=== PATIENT | male | born 1935 | race Caucasian/White ===

== ENCOUNTER 2016-11-05 19:01 | Emergency (ER) ==
[2016-11-05 19:07] VITALS: BP 148/81; TEMP 99.6; BMI 24.4
[2016-11-05] MEDS ORDERED: TORADOL IM STA (20:01)
--- NOTE | 2016-11-05 20:03 | ED.PDOC ---
General ED Provider: Dr. PROSPER SANTIAGO Chief Complaint: Hip Pain/Injury Stated Complaint: Left hip pain, hurt to walk and sit, no injury or falls. Time Seen by Physician: 20:01 Mode of Arrival: Walk-In Information Source: Patient Primary Care Provider: [facility] Nursing and Triage Documentation Reviewed and Agree: Yes Musculoskeletal Complaint Exam - Hip/Pelvis Complaint/Exam Location of Pain: Reports: Left Mechanism of Injury: Reports: No known trauma Symptoms Are: Still present Initial Severity: Mild Current Severity: Mild Location: Reports: Discrete Character: Reports: Aching, Throbbing Aggravating: Reports: Movement Alleviating: Reports: None Associated Signs and Symptoms: Denies: Swelling, Redness, Bruising, Fever, Weakness, Dizziness, Syncope, Abdominal pain, Knee pain Related History: Reports: Similar episode Able to Bear Weight: Yes Related Surgical History: Reports: None Pelvis Palpation: Stable Tenderness: Present: Greater Trochanter Differential Diagnoses: Arthritis, Sprain, Tenosynovitis Review of Systems - Review Of Systems Constitutional: Reports: No symptoms Eyes: Reports: No symptoms Ears, Nose, Mouth, Throat: Reports: No symptoms Respiratory: Reports: No symptoms Cardiac: Reports: No symptoms GI: Reports: No symptoms : Reports: No symptoms Musculoskeletal: Reports: Joint pain Skin: Reports: No symptoms Neurological: Reports: No symptoms Endocrine: Reports: No symptoms Hematologic/Lymphatic: Reports: No symptoms All Other Systems: Reviewed and Negative Past Medical History - Past Medical History Previously Healthy: Yes Endocrine: Reports: None Cardiovascular: 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, NM, Hypertension Respiratory: Reports: None Hematological: Reports: None Gastrointestinal: Reports: None Genitourinary: Reports: None Neuro/Psych: Reports: None Musculoskeletal: Reports: None Cancer: Reports: None - Surgical History General Surgical History: Reports: CABG, Hernia Repair - Family History Family History: Reports: Unknown - Social History Smoking Status: Never smoker Hx Substance Use: No Alcohol Screening: None - Immunizations Tetanus Shot up to Date: Yes Physical Exam - Physical Exam Appearance: Well-appearing, No pain distress, Well-nourished Eyes: ZACHARY, EOMI, Conjunctiva clear ENT: Ears normal, Nose normal, Oropharynx normal Respiratory: Airway patent, Breath sounds clear, Breath sounds equal, Respirations nonlabored Cardiovascular: RRR, Pulses normal, No rub, No murmur GI/: Soft, Nontender, No masses, Bowel sounds normal, No Organomegaly Musculoskeletal: Normal strength, ROM intact, No edema, No calf tenderness Skin: Warm, Dry, Normal color Neurological: Sensation intact, Motor intact, Reflexes intact, Cranial nerves intact, Alert, Oriented Psychiatric: Affect appropriate, Mood appropriate Interpretation - Radiology Interpretation Radiology Results: Negative Exam Interpreted: CT Scan Critical Care Note - Critical Care Note Total Time (mins): 0 Course - Course Orders, Labs, Meds: Orders Category Date Time Status Ketorolac Tromethamine [Toradol] MEDS 11/05/16 20:01 Discontinued 30 mg IM ONCE STA CT HIP LEFT WITHOUT CONTRAST Stat RADS 11/05/16 20:01 Completed Medications Discontinued Medications Generic Name Dose Route Start Last Admin Trade Name Freq PRN Reason Stop Dose Admin Ketorolac Tromethamine 30 mg 11/05/16 20:01 11/05/16 20:20 Toradol IM 11/05/16 20:02 30 mg ONCE STA Administration Vital Signs: Temp Pulse Resp BP Pulse Ox 11/05/16 19:01 99.6 F 88 18 148/81 H 96 Departure - Departure Time of Disposition: 20:39 Disposition: HOME SELF-CARE Discharge Problem: Hip pain Condition: Stable Pt referred to PMD for follow-up: Yes Additional Instructions: rest hot pack f/u witrh PMD Prescriptions: Hydrocodone/Acetaminophen [[place] 5-325 Tablet] 1 tab PO TID PRN #12 tablet PRN Reason: PAIN Prednisone 10 mg PO BIDWM #14 tablet Allergies/Adverse Reactions: Allergies Penicillins Adverse Reaction (Verified 11/05/16 19:07) Home Medications: Ambulatory Orders Acebutolol HCl 200 mg PO BID 11/13/14 Aspirin [Aspirin EC] 325 mg PO DAILYWM 11/13/14 Omeprazole [Prilosec] 20 mg PO QDAC 11/13/14 Ascorbate Calcium [Vitamin C] 500 mg PO DAILY 11/07/15 Hydrocodone Bit/Acetaminophen [[place] 5-325] 1 tab PO BID PRN 11/07/15 Levothyroxine Sodium [Synthroid] 50 mcg PO QDAC 11/07/15 Lisinopril/Hydrochlorothiazide [Zestoretic 20-12.5 mg Tablet] 1 mg PO DAILY Vitamin E 400 unit PO DAILY 11/07/15 Hydrocodone/Acetaminophen [[place] 5-325 Tablet] 1 tab PO TID PRN #12 tablet 11/05 Prednisone 10 mg PO BIDWM #14 tablet 11/05/16 Disposition Discussed With: Patient, Family
--- NOTE | 2016-11-05 20:36 | CT ---
Exam: CT of the left hip without contrast History: Left hip pain Technique: [address] of the left hip with multiplanar reformations FINDINGS: No fracture of the femoral hip is seen. Left acetabulum is intact. Minor osteoarthritic change manifest by marginal osteophytosis and subchondral cystic change of the acetabulum. Visuali zed portions of the left bertha pelvis are intact. There is edema of the subcutaneous fat over the gr eater trochanter region possible intermuscular fat plane edema as well. No mass or fluid collection is seen. No obvious joint effusion by CT. Impression: 1. No acute bony or articular abnormalities of the left hip. 2. Mild osteoarthritic change 3. Subcutaneous and deep fat plane edematous change. Correlate for trauma. No hematoma is seen.
== END 2016-11-05 20:52 | disposition home or self-care (01) ==
LOC: ED 19:01
DX: M25.552 Pain in left hip (principal); Z79.899 Other long term (current) drug therapy
CPT/HCPCS: 96372; 99282

== ENCOUNTER 2017-01-10 15:00 | Outpatient (RCR) ==
--- NOTE | 2016-12-24 15:49 | RS.OPPTEV2 ---
Date of Note: 12/23/16 Visit #: 1 Date of Evaluation: 12/23/16 Payer Source: MEDICARE Treatment Diagnosis: Left hip pain, gait abnormality History of Condition/Mechanism of Injury:: Patient reports no injury to the left hip. States on 11/05/16 he was sitting at the counter at work, when he stood up and had severe pain in the left hip when he put his weight on the left LE. States he went to the ER and had a CT scan of the hip that showed inflammation and arthritis. Prior Level of Function.....Patient was independent with: ADL's, Self Care, Work /Vocation, Caregiving, Ambulation/Mobility, Community Integration/Access Functional Limitations: Self Care, ADL's, Standing, Squatting, Ambulation, Community Access/Integration Current Subjective/complaints:: Patient reports using a crutch in the right UE to take weight off the left LE with walking. States he received a steroid shot , which decreased the pain to the point that he can now put weight on the left LE, but he cannot walk without the crutch. States he was already using a cane in the left UE because of right knee pain. States left hip pain gets worse with walking. Reports tenderness at the hip. He is able to lay on the left hip. Denies tingling or numbness in the left LE. He has tried heat to the hip , but feels that it did not help. He has not tried ice. States he was given pain medication, but he does not take it very much unless the pain is really bad. Reports pain worse after working all day. Treatment Side (optional): Left Medical History Medical History: Hypertension, Arthritis Surgical History Comments:: CABG 2002, hernia repair 2002 Smoking Status: Unknown if ever smoked Diagnostic Testing/Imaging:: CT of left hip w/o contrast on 11/05/16: Impression: 1. no acute bony or articular abnormalities of the left hip. 2. Mild osteoarthritic change. 3. Subcutaneous and deep fat plane edematous change. Correlate for trauma. No hematoma is seen. Hx Home Medications: Gabapentin, Fairdealing Patient's Goals: His goal is to get relief of left hip pain. Pain Assessment - Pain Description Pain Location: left hip joint Pain Description: Sharp, Aching Current Pain Intensity: 4/10 Worst Pain Intensity: 10/10 Functional Outcome Measure LE Functional Scale: 17 (17/80=78.75% impairment) - G Codes & Severity Modifier G Codes & Modifier: Mobility current CL. Mobility goal CJ Source of G Code score: LE functional scale Gait - Gait Pattern Gait Comments: Patient ambulates with a straight cane in the left hand and a crutch on the right side. He demonstrates decreased stance on the left LE. Also demonstrates decreased left hip flexion and knee flexion during swing phase. - Left Hip ROM Comments: Left LE AROM is WFL's. Patient reports pain with hip adduction past midline. - Left Hip Strength Left Hip Flexion: 4+ Good + Left Hip Extension: 4+ Good + Left Hip Abduction: 4 Good Left Hip Adduction: 5 Normal Left Hip External Rotation: 4+ Good + Left Hip Internal Rotation: 4+ Good + Comments: Patient reports pain with resisted hip abduction. Palpation Comments:: Patient reports mild tenderness with palpation to the left greater trochanter. Sensation - Sensation Comments: Reports sensation impaired from circulation problems. Reports sensation to light touch and deep pressure intact. Additional Comments: Additional Comments: Right SLR to 45-50 degrees, left SLR to 35 degrees. - Treatment Modality: Ultrasound Parameters/Method Applied: 1.5 w/cm2 continuous X 8 mins over the left greater trochanter. Patient Position: Right Sidelying Interventions - Exercise/Activities/Manual Therapy Exercises/Activities: Patient instructed in right sidelying, left ITB stretch. Manual Therapy: NA - Charges Total Direct Minutes: 50 mins Total Treatment Time: 50 mins Procedures billed for this date of service:: Giles Martinez, Assessment Assessment: Patient presents to therapy with a diagnosis of left hip Greater trochanteric bursitis. He reports left hip pain and difficulty walking. He is currently ambulating with a cane and a crutch to decrease weight on the left LE. He reports pain with prolonged standing and walking. He demonstrates symtpoms consistent with left hip bursitis and will benefit from modalities and stretching exercises to decrease his symptoms. Patient Education: Education of diagnosis, Body/Joint mechanics, Home Exercise Program, Education of Plan of Care Rehab Potential: Good Short Term Goals Goal #1: Left hip pain decreased to 2/10. Goal to be met by: 01/07/17 Goal #2: Pt independent and compliant in HEP. Goal to be met by: 01/07/17 Goal #3: Pt able to walk short distances with minimal left hip pain. Goal to be met by: 01/07/17 Gas Station Cashier Goals Goal #1: Pt to amb. community distances without left hip pain. Goal to be met by: 01/28/17 Goal #2: Score on LE functional scale improved to <39% impairment. Goal to be met by: 01/28/17 Goal #3: Pt able to perform all ADL's without left hip pain. Goal to be met by: 01/28/17 Plan - Treatment to be Provided Procedures: Therapeutic Exercises, Therapeutic Activity, Patient Education Modalities: Electrical Stimulation, Ultrasound/Phonophoresis, Cryotherapy, Hot Packs - Treatment Plan Frequency: 3 X week Duration: 4 weeks ORDER # VISITS AND/OR THROUGH DATE: 01/28/17 - Treatment Code (1) Hip pain Code(s): M25.559 - PAIN IN UNSPECIFIED HIP Qualifiers: Laterality: left Qualified Code(s): M25.552 - Pain in left hip (2) Gait abnormality Code(s): R26.9 - UNSPECIFIED ABNORMALITIES OF GAIT AND MOBILITY Comments: R26.9 (3) Greater trochanteric bursitis of left hip Code(s): M70.62 - TROCHANTERIC BURSITIS, LEFT HIP Comments: M70.62
--- NOTE | 2016-12-25 16:32 | RS.OPPTDN ---
Subjective Date of Note: 12/25/16 Visit #: 2 Date of Evaluation: 12/23/16 Payer Source: MEDICARE Treatment Diagnosis: Left hip pain, gait abnormality Current Subjective/complaints:: Patient says he can't tell if his pain is better or not. Reports no problems from HEP. Indicates pain at the L greater trochanter. Pain Assessment - Pain Description Pain Location: left hip joint Pain Description: Sharp, Aching Current Pain Intensity: Did not rate - Treatment Modality: Ultrasound Parameters/Method Applied: continuous @ 1.5 w/cm2 3.3 mHz x 12 mins to the L greater trochanter Patient Position: Right Sidelying - Heat/Cryotherapy Treatment: Cryotherapy (over the L hip in sidelying x 15 mins after therex) Interventions - Exercise/Activities/Manual Therapy Exercises/Activities: Patient began receiving passive HS, heel cord, and ITB stretching x 4. Also, trunk rotation to the R. Began pillow squeezes 2x10. Total minutes of Exercise: 13 Manual Therapy: NA - Charges Total Direct Minutes: 25 Total Treatment Time: 40 Procedures billed for this date of service:: cp, u/s, ex Assessment: Patient admitted relief of hip pain upon ambulating out of the department. He should benefit from further modalities and therex to relieve his pain along with encouragement to use ice and stretch at home as instructed. Patient Education: Education of diagnosis, Body/Joint mechanics, Home Exercise Program, Home Safety, Activity Modification, Education of Plan of Care Patient demonstrates compliance with HEP?: Yes Short Term Goals Goal #1: Left hip pain decreased to 2/10. Goal to be met by: 01/07/17 Goal #2: Pt independent and compliant in HEP. Goal to be met by: 01/07/17 Goal #3: Pt able to walk short distances with minimal left hip pain. Goal to be met by: 01/07/17 Skilled Nursing Goals Goal #1: Pt to amb. community distances without left hip pain. Goal to be met by: 01/28/17 Goal #2: Score on LE functional scale improved to <39% impairment. Goal to be met by: 01/28/17 Goal #3: Pt able to perform all ADL's without left hip pain. Goal to be met by: 01/28/17 Plan PLAN OF CARE EXPIRES ON:: 01/28/17 ORDER # VISITS AND/OR THROUGH DATE: 01/28/17 PLAN: Continue Plan of Care
--- NOTE | 2016-12-27 16:15 | RS.OPPTDN ---
Subjective Date of Note: 12/27/16 Visit #: 3 Date of Evaluation: 12/23/16 Payer Source: MEDICARE Treatment Diagnosis: Left hip pain, gait abnormality Current Subjective/complaints:: Patient reports relief when at rest,but the pain depends upon how long he is on his feet.He reports moderate L hip pain today. Pain Assessment - Pain Description Pain Location: left hip joint Pain Description: Sharp, Aching Current Pain Intensity: 4/10 Other Comments regarding Pain:: Tender to palpate the L trochanter. - Treatment Modality: Ultrasound Parameters/Method Applied: 10 mins. @ 1.5 w/cm2,continuous mode to L trochanter. Patient Position: Right Sidelying - Heat/Cryotherapy Treatment: Cryotherapy (10 mins. after exercise and US) Interventions - Exercise/Activities/Manual Therapy Exercises/Activities: 20 mins. IT band stretches L hip abductor stretches in supine and R side-lying.Isometric hip abduction and contract -relax method to stretch. Total minutes of Exercise: 20 Manual Therapy: NA Total minutes of Manual Therapy: 0 HOME EXERCISE PROGRAM: R sidelying IT band stretch. - Charges Total Direct Minutes: 30 Total Treatment Time: 40 Procedures billed for this date of service:: US,ex,cp Assessment: Patient reports relief after treatment,but does report the pain returns upon standing today,but less intense.He has moderate hamstring tightness bilaterally.He is tender to palpate the L trochanter with moderate pressure and also has slight elevation of pain with hip flexion @ 90 degrees. Patient Education: Body/Joint mechanics, Home Exercise Program, Education of Plan of Care Patient demonstrates compliance with HEP?: Yes Short Term Goals Goal #1: Left hip pain decreased to 2/10. Goal to be met by: 01/07/17 Goal #2: Pt independent and compliant in HEP. Goal to be met by: 01/07/17 Progress towards Goal:: Progressing Goal #3: Pt able to walk short distances with minimal left hip pain. Goal to be met by: 01/07/17 Driller Machine Goals Goal #1: Pt to amb. community distances without left hip pain. Goal to be met by: 01/28/17 Goal #2: Score on LE functional scale improved to <39% impairment. Goal to be met by: 01/28/17 Goal #3: Pt able to perform all ADL's without left hip pain. Goal to be met by: 01/28/17 Plan PLAN OF CARE EXPIRES ON:: 01/28/17 ORDER # VISITS AND/OR THROUGH DATE: 01/28/17 PLAN: Continue Plan of Care
--- NOTE | 2016-12-31 16:00 | RS.OPPTDN ---
Subjective Date of Note: 12/31/16 Visit #: 4 Date of Evaluation: 12/23/16 Payer Source: MEDICARE Treatment Diagnosis: Left hip pain, gait abnormality Current Subjective/complaints:: Patient reports the L hip feels slightlly better today. Pain Assessment - Pain Description Pain Location: left hip joint Pain Description: Sharp, Aching Current Pain Intensity: not rated - Treatment Modality: Ultrasound Parameters/Method Applied: 10 mins. continuous mode to L trochanter @1.5 w/cm2. Patient Position: Right Sidelying - Heat/Cryotherapy Treatment: Cryotherapy (15 mins after exercises and US) Interventions - Exercise/Activities/Manual Therapy Exercises/Activities: 20 mins. IT band stretches , L hip abductor stretches in supine and R side-lying.SKTC and 90/90 hamstring stretches. Total minutes of Exercise: 20 Manual Therapy: NA Total minutes of Manual Therapy: 0 HOME EXERCISE PROGRAM: R sidelying IT band stretch.SKTC,90 /90 hams. stretches, piriformis stretches. - Charges Total Direct Minutes: 30 Total Treatment Time: 45 Procedures billed for this date of service:: ex,US,cp Assessment: Patient reports less intense pain today with initiating standing , able to walk short distances with less pain also.He has greater tightness in te R LE ,as compared to the L,but continues to respond well to stretching. Patient Education: Education of diagnosis, Body/Joint mechanics, Home Exercise Program, Home Safety, Activity Modification, Education of Plan of Care Patient demonstrates compliance with HEP?: Yes Short Term Goals Goal #1: Left hip pain decreased to 2/10. Goal to be met by: 01/07/17 Progress towards Goal:: Progressing Goal #2: Pt independent and compliant in HEP. Goal to be met by: 01/07/17 Progress towards Goal:: Progressing Goal #3: Pt able to walk short distances with minimal left hip pain. Goal to be met by: 01/07/17 Progress towards Goal:: Progressing Retirement Goals Goal #1: Pt to amb. community distances without left hip pain. Goal to be met by: 01/28/17 Goal #2: Score on LE functional scale improved to <39% impairment. Goal to be met by: 01/28/17 Goal #3: Pt able to perform all ADL's without left hip pain. Goal to be met by: 10/17/17 Plan PLAN OF CARE EXPIRES ON:: 01/28/17 ORDER # VISITS AND/OR THROUGH DATE: 01/28/17 PLAN: Continue Plan of Care
--- NOTE | 2017-01-01 16:06 | RS.OPPTDN ---
Subjective Date of Note: 01/01/17 Visit #: 5 Date of Evaluation: 12/23/16 Payer Source: MEDICARE Treatment Diagnosis: Left hip pain, gait abnormality Current Subjective/complaints:: Patient says his hip is feeling better. Reports he is trying to work on stretches at home. Pain Assessment - Pain Description Pain Location: left hip joint Pain Description: Sharp, Aching Current Pain Intensity: not rated ("better") - Treatment Modality: Ultrasound Parameters/Method Applied: Continuous @ 3.3 mHz and 1.5 w/cm2 x 12 mins to the L greater trochanter Patient Position: Right Sidelying - Heat/Cryotherapy Treatment: Cryotherapy (x 15 mins to the L hip in sidelying after therex) Interventions - Exercise/Activities/Manual Therapy Exercises/Activities: 20 mins. IT band stretches , L hip abductor stretches in supine and R side-lying.SKTC and 90/90 hamstring stretches. R lower trunk rotation. Patient began pillow squeezes and isometric hip abd x 10. Manual Therapy: NA HOME EXERCISE PROGRAM: R sidelying IT band stretch.SKTC,90 /90 hams. stretches, piriformis stretches. - Charges Total Direct Minutes: 32 Total Treatment Time: 47 Procedures billed for this date of service:: u/s, cp, ex Assessment: Patient has been experiencing less L hip pain, but does remain tight with hip abd and hamstrings. Patient is participating in home stretching as he is able . Patient Education: Education of diagnosis, Body/Joint mechanics, Home Exercise Program, Home Safety, Activity Modification, Education of Plan of Care Patient demonstrates compliance with HEP?: Yes Short Term Goals Goal #1: Left hip pain decreased to 2/10. Goal to be met by: 01/07/17 Progress towards Goal:: Progressing Goal #2: Pt independent and compliant in HEP. Goal to be met by: 01/07/17 Progress towards Goal:: Progressing Goal #3: Pt able to walk short distances with minimal left hip pain. Goal to be met by: 01/07/17 Progress towards Goal:: Progressing Continuous Crusher Operator Goals Goal #1: Pt to amb. community distances without left hip pain. Goal to be met by: 01/28/17 Goal #2: Score on LE functional scale improved to <39% impairment. Goal to be met by: 01/28/17 Goal #3: Pt able to perform all ADL's without left hip pain. Goal to be met by: 01/28/17 Plan PLAN OF CARE EXPIRES ON:: 01/28/17 ORDER # VISITS AND/OR THROUGH DATE: 01/28/17 PLAN: Continue Plan of Care
--- NOTE | 2017-01-03 16:26 | RS.OPPTDN ---
Subjective Date of Note: 01/03/17 Visit #: 6 Date of Evaluation: 12/23/16 Payer Source: MEDICARE Treatment Diagnosis: Left hip pain, gait abnormality Current Subjective/complaints:: Patient reports the tenderness and soreness in the L hip area is lessening.He also reports he feels he would lose his balnce to the L if not using an assistive device.He uses crutch on R and cane in L hand. Pain Assessment - Pain Description Pain Location: left hip joint Pain Description: Aching Current Pain Intensity: not rated ("better") Interventions - Exercise/Activities/Manual Therapy Exercises/Activities: 50 mins. total ,including patient education for safety.Leg press for both LE's @45 # ,then L LE only @ 30 # ,3/10 reps each.Red theraband for hip abd/adduction.Single leg stance on L and R briefly with mod. assist required. Total minutes of Exercise: 50 Manual Therapy: NA Total minutes of Manual Therapy: 0 HOME EXERCISE PROGRAM: R sidelying IT band stretch.SKTC,90 /90 hams. stretches, piriformis stretches.Red theraband exercises for hip abd/adduction. - Charges Total Direct Minutes: 50 Total Treatment Time: 50 Procedures billed for this date of service:: ex 3 Assessment: Patient has significant weakness in the L hip abductors ,with + Trendelenberg present with single leg stance.He does report less tenderness in the L trochanteric region today.In static stance ,he has trunk shift to the R , and pelvic translation to the L.He is moderate risk for falls without assistive devices.He reports using assistive devices while in his home for safety. Patient Education: Education of diagnosis, Body/Joint mechanics, Home Exercise Program, Home Safety, Activity Modification, Education of Plan of Care Patient demonstrates compliance with HEP?: Yes Short Term Goals Goal #1: Left hip pain decreased to 2/10. Goal to be met by: 01/07/17 Progress towards Goal:: Progressing Goal #2: Pt independent and compliant in HEP. Goal to be met by: 01/07/17 Progress towards Goal:: Progressing Goal #3: Pt able to walk short distances with minimal left hip pain. Goal to be met by: 01/07/17 Progress towards Goal:: Progressing Studio Set Up Worker Goals Goal #1: Pt to amb. community distances without left hip pain. Goal to be met by: 01/28/17 Progress towards goal: Progressing Goal #2: Score on LE functional scale improved to <39% impairment. Goal to be met by: 01/28/17 Goal #3: Pt able to perform all ADL's without left hip pain. Goal to be met by: 01/28/17 Plan PLAN OF CARE EXPIRES ON:: 01/28/17 ORDER # VISITS AND/OR THROUGH DATE: 01/28/17 PLAN: Progress Exercises
--- NOTE | 2017-01-07 16:26 | RS.OPPTDN ---
Subjective Date of Note: 01/07/17 Visit #: 7 Date of Evaluation: 12/23/16 Payer Source: MEDICARE Treatment Diagnosis: Left hip pain, gait abnormality Current Subjective/complaints:: Patient reports no soreness after past session of resistive exercises.He does have intermittent R knee pain due to arthritis. Pain Assessment - Pain Description Pain Location: left hip joint Pain Description: Aching Current Pain Intensity: not rated ("better") Interventions - Exercise/Activities/Manual Therapy Exercises/Activities: 50 mins. total ,including patient education for safety.Leg press for both LE's @45 # ,3/15 reps.Side steps on /off 4 " step, widened MIRZA for weight shift top L and R.Supine stretches to hamstrings and lumbar,ended session with R sidelying position doing L HIP abduction (clam shell .) Total minutes of Exercise: 50 Manual Therapy: NA Total minutes of Manual Therapy: 0 HOME EXERCISE PROGRAM: R sidelying IT band stretch.SKTC,90 /90 hams. stretches, piriformis stretches.Red theraband exercises for hip abd/adduction. - Charges Total Direct Minutes: 50 Total Treatment Time: 50 Procedures billed for this date of service:: ex 3 Assessment: Patient reports less tenderness at the L trochanter today,less pain with weight bearing activities.He has better awareness of body mechanics and positioning ,including while at rest.He can benefit from continued exercises as he is very weak in the L hip abductors,fatigues within 3 to 5 reps. of sidelying exercises. Patient Education: Education of diagnosis, Body/Joint mechanics, Home Exercise Program, Home Safety, Activity Modification, Education of Plan of Care Patient demonstrates compliance with HEP?: Yes Short Term Goals Goal #1: Left hip pain decreased to 2/10. Goal to be met by: 01/07/17 Progress towards Goal:: Progressing Goal #2: Pt independent and compliant in HEP. Goal to be met by: 01/07/17 Progress towards Goal:: Progressing Goal #3: Pt able to walk short distances with minimal left hip pain. Goal to be met by: 01/07/17 Progress towards Goal:: Progressing Production Statistical Clerk Goals Goal #1: Pt to amb. community distances without left hip pain. Goal to be met by: 01/28/17 Progress towards goal: Progressing Goal #2: Score on LE functional scale improved to <39% impairment. Goal to be met by: 01/28/17 Goal #3: Pt able to perform all ADL's without left hip pain. Goal to be met by: 01/28/17 Progress towards goal: Progressing Plan PLAN OF CARE EXPIRES ON:: 01/28/17 ORDER # VISITS AND/OR THROUGH DATE: 01/28/17 PLAN: Continue Plan of Care
--- NOTE | 2017-01-08 16:21 | RS.OPPTDN ---
Subjective Date of Note: 01/08/17 Visit #: 8 Date of Evaluation: 12/23/16 Payer Source: MEDICARE Treatment Diagnosis: Left hip pain, gait abnormality Current Subjective/complaints:: Patient says he feels like the L hip will "go out" at times. States that his R knee and L hip were achey after his last session. States he relies mostly on his crutch in the R UE and only uses both it and the cane when he is in the parking lot or stores. Says he would like to get completely away from AD. Pain Assessment - Pain Description Pain Location: left hip joint Pain Description: Aching Current Pain Intensity: more achey today and sore at the R knee - Treatment Modality: Ultrasound Parameters/Method Applied: continuous @ 1.5 w/cm2 x 8 mins 3.3 mHz to the L greater trochanter Patient Position: Right Sidelying - Heat/Cryotherapy Treatment: Hot Pack (over the L hip in sidelying x 15 mins) Interventions - Exercise/Activities/Manual Therapy Exercises/Activities: 22mins. Passive HS, piriformis, fig 4, and trunk rotation to the R for L hip x 3 each. Patient performs ball squeezes for isometric hip add in hooklying, green tband for L hip abd in hooklying (gave for home), clams (3x5) all 2x10. Patient performs on Leg press for 15 and 30# using L LE only per request and determined due to c/o R knee pain. Manual Therapy: NA HOME EXERCISE PROGRAM: R sidelying IT band stretch.SKTC,90 /90 hams. stretches, piriformis stretches.Red theraband exercises for hip abd/adduction. - Charges Total Direct Minutes: 30 Total Treatment Time: 45 Procedures billed for this date of service:: hp, u/s, ex Assessment: Returned to u/s today with ex related to patient's c/o's. Mr. Mcallister is progressing with improved leti to mod palpation and use of sound head during modality. He was able to leti stretches better today and with only performing Leg presses using the LLE only avoiding aggravation to the R LE. Patient admits to feeling significantly better upon leaving and experiencing more flexibility with amb. Patient Education: Body/Joint mechanics, Home Exercise Program, Home Safety Patient demonstrates compliance with HEP?: Yes Short Term Goals Goal #1: Left hip pain decreased to 2/10. Goal to be met by: 01/07/17 Progress towards Goal:: Progressing Goal #2: Pt independent and compliant in HEP. Goal to be met by: 01/07/17 Progress towards Goal:: Progressing Goal #3: Pt able to walk short distances with minimal left hip pain. Goal to be met by: 01/07/17 Progress towards Goal:: Progressing [facility] Goals Goal #1: Pt to amb. community distances without left hip pain. Goal to be met by: 01/28/17 Progress towards goal: Progressing Goal #2: Score on LE functional scale improved to <39% impairment. Goal to be met by: 01/28/17 Goal #3: Pt able to perform all ADL's without left hip pain. Goal to be met by: 01/28/17 Progress towards goal: Progressing Plan PLAN OF CARE EXPIRES ON:: 01/28/17 ORDER # VISITS AND/OR THROUGH DATE: 01/28/17 PLAN: Progress Exercises
--- NOTE | 2017-01-10 16:43 | RS.OPPTDN ---
Subjective Date of Note: 01/10/17 Visit #: 9 Date of Evaluation: 12/23/16 Payer Source: MEDICARE Treatment Diagnosis: Left hip pain, gait abnormality Current Subjective/complaints:: Patient says he only has hip pain now if he places FWB onto the L LE. Reports R knee pain is improving. States he is working around his shop and home using only his cane to the R side and not both AD. Pain Assessment - Pain Description Pain Location: left hip joint only with FWB Pain Description: Aching - Treatment Modality: Ultrasound Parameters/Method Applied: continuous @ 1.5 w/cm2 x 8 mins to the L greater trochanter Patient Position: Right Sidelying Interventions - Exercise/Activities/Manual Therapy Exercises/Activities: 25mins. Passive HS, piriformis, fig 4, and trunk rotation to the R for L hip x 3 each. Patient performs ball squeezes for isometric hip add in hooklying, QS, green tband for L hip abd in hooklying, bilateral SAQ with ball between lower legs, clams (3x5) all 2x10. Patient performs on Leg press for 15 and 30# using L LE only per continued request and determined due to decreasing R knee pain. Manual Therapy: NA HOME EXERCISE PROGRAM: R sidelying IT band stretch.SKTC,90 /90 hams. stretches, piriformis stretches.Red theraband exercises for hip abd/adduction. - Charges Total Direct Minutes: 34 Total Treatment Time: 34 Procedures billed for this date of service:: u/s, ex2 Assessment: Patient able to partial WB onto the L LE without pain, but once he applies full weight, pain becomes present. Although that pain is more mild than previously. Patient has been compliant with HEP and working at his job and outside in his yard. Patient Education: Education of diagnosis, Body/Joint mechanics, Home Exercise Program, Home Safety, Activity Modification, Education of Plan of Care Patient demonstrates compliance with HEP?: Yes Short Term Goals Goal #1: Left hip pain decreased to 2/10. Goal to be met by: 01/07/17 Progress towards Goal:: Progressing Goal #2: Pt independent and compliant in HEP. Goal to be met by: 01/07/17 Progress towards Goal:: Progressing Goal #3: Pt able to walk short distances with minimal left hip pain. Goal to be met by: 01/07/17 Progress towards Goal:: Progressing Intermediate Goals Goal #1: Pt to amb. community distances without left hip pain. Goal to be met by: 01/28/17 Progress towards goal: Progressing Goal #2: Score on LE functional scale improved to <39% impairment. Goal to be met by: 01/28/17 Goal #3: Pt able to perform all ADL's without left hip pain. Goal to be met by: 01/28/17 Progress towards goal: Progressing Plan PLAN OF CARE EXPIRES ON:: 01/28/17 ORDER # VISITS AND/OR THROUGH DATE: 01/28/17 PLAN: Progress Exercises (Patient to attend one more session per order.)
== END 2017-01-11 ==
PROVIDERS: ATTEND Orthopaedic Surgery
DX: M70.62 Trochanteric bursitis, left hip (principal)

== ENCOUNTER 2017-04-23 16:20 | Outpatient (CLI) | END 2017-04-23 16:21 | disposition home or self-care (01) | LOC: LAB 16:20 | PROVIDERS: ATTEND General Practice | DX: L02.91 Cutaneous abscess, unspecified (principal) | CPT/HCPCS: 87070; 87186 ==

== ENCOUNTER 2017-11-03 13:03 | Outpatient (CLI) ==
[2017-05-02 14:59] VITALS: BMI 24.4
--- NOTE | 2017-11-03 16:09 | CT ---
EXAM: CT left hip without contrast HISTORY: Pain in bilateral hips COMPARISON: 11/05/2016 TECHNIQUE: CT left hip performed without intravenous contrast. Coronal and sagittal reformatted tamie ges obtained. FINDINGS: Mild fecal retention in the visualized colon. Colonic diverticulosis. Prostate moderatel y enlarged. Small fat-containing left inguinal hernia. Atherosclerosis. Left sacroiliac joint inta ct with mild bridging changes. Mild osteoarthritis left hip with joint space narrowing and osteophyt e formation. Degenerative change in the spine is only minimally visualized. IMPRESSION: 1. No fracture or dislocation. 2. Mild osteoarthritis left hip.
--- NOTE | 2017-11-03 16:12 | CT ---
EXAM: CT of the right hip without contrast TECHNIQUE: Helical axial CT of the right hip was performed without contrast with coronal and sagittal reconstructions and separate work station 3-D renderings. COMPARISON: CT of the left hip from same day HISTORY: Hip pain FINDINGS: There is no acute fracture or dislocation. Alignment is anatomic. There is no evidence f or femoral neck fracture or acetabular fracture. There is no impaction. The greater and lesser troc hanter are intact. The sacral ala is intact. There is no evidence for superior or inferior pubic ra mus fracture. Soft tissues are negative. There is some moderate degenerative change in the hip joint. IMPRESSION: 1. Moderate degenerative change of the right hip. 2. No acute osseous abnormality.
== END 2017-11-03 13:04 | disposition home or self-care (01) ==
LOC: RAD 13:03
PROVIDERS: ATTEND Internal Medicine
DX: M25.552 Pain in left hip (principal); M25.551 Pain in right hip

== ENCOUNTER 2020-08-08 19:46 | Inpatient (IN) ==
[2020-08-08] MEDS ORDERED: TYLENOL PO PRN (21:41)
[2020-08-08] MEDS ORDERED: LASIX IVP ONE (21:47)
[2020-08-08] MEDS ORDERED: NORCO 5-325 PO PRN (21:52)
[2020-08-08 22:00] LABS: BASOPHILS % (AUTO) 0.3 % (0.0-3.0); EOSINOPHILS # (AUTO) 0.2 K/ul (0.0-0.7); EOSINOPHILS % (AUTO) 2.4 % (0.0-7.0); HEMATOCRIT 32.6 % (42.0-52.0); HEMOGLOBIN 10.4 g/dl (14.0-18.0); IMMATURE GRANULOCYTE % (AUTO) 0.3 % (0.0-5.0); LYMPHOCYTES # (AUTO) 1.7 K/uL (0.60-3.4); LYMPHOCYTES % (AUTO) 24.9 (10.0-50.0); MEAN CORPUSCULAR HEMOGLOBIN 30.3 pg (27.0-31.0); MEAN CORPUSCULAR HGB CONC 31.9 (31.8-35.4); MONOCYTES # (AUTO) 0.6 K/uL (0.4-2.0); MONOCYTES % (AUTO) 9.5 (0-10); NEUTROPHILS # (AUTO) 4.2 K/ul (2.0-6.9); NEUTROPHILS % (AUTO) 62.6 % (42.2-75.2); PLATELET COUNT 181 10^3/uL (140-440); RDW COEFFICIENT OF VARIATION 13.3 % (11.6-14.8); RED BLOOD COUNT 3.43 10^6/ul (4.70-6.10); WHITE BLOOD COUNT 6.71 K/ul (4.2-10.2)
[2020-08-08 22:17] LABS: ALANINE AMINOTRANSFERASE 62.3 U/L (0-50); ALBUMIN 3.4 g/dL (3.5-5.0); ALKALINE PHOSPHATASE 121.5 U/L (56-119); ASPARTATE AMINO TRANSFERASE 53.2 U/L (17-59); BILIRUBIN,TOTAL 0.45 mg/dL (0.2-1.3); BLOOD UREA NITROGEN 30.8 mg/dL (9-20); CALCIUM 8.37 mg/dL (8.4-10.2); CARBON DIOXIDE 26.9 mmol/L (22-30.0); CHLORIDE 107.5 mmol/L (98-107); CREATININE 1.3 mg/dL (0.60-1.10); GLUCOSE 120.4 mg/dL (74-106); POTASSIUM 4.51 mmol/L (3.5-5.1); SODIUM 139.5 mmol/L (134.5-145); TOTAL PROTEIN 6.06 g/dL (6.3-8.2)
--- NOTE | 2020-08-08 22:32 | DI ---
Exam: Chest one-view History: Shortness of breath FINDINGS: Normal cardiomediastinal contours. Prominent pulmonary vasculature. Small pleural fluid bilaterally. The lungs are hyperexpanded. Prior mediastinotomy. No acute chest wall abnormality. Impression: Central vascular prominence and bilateral pleural fluid could represent congestive heart failure comp onent. Chronic obstructive pulmonary disease
[2020-08-08] MEDS: SECTRAL PO SCH (22:35)
[2020-08-08] MEDS: ELIQUIS PO SCH (22:36)
[2020-08-08 23:02] VITALS: BMI 25.2
[2020-08-09 01:24] LABS: BILIRUBIN,URINE Negative (NEGATIVE); CLARITY,URINE Clear (CLEAR); COLOR,URINE Yellow (YELLOW); GLUCOSE, URINE (UA) Negative (NEGATIVE); KETONES,URINE Negative (NEGATIVE); LEUKOCYTE ESTERASE ,URINE Negative (NEGATIVE); NITRITE,URINE Negative (NEGATIVE); PH,URINE 5.5 (5-9); PROTEIN,URINE 1+ (NEGATIVE); URINE, BLOOD Trace-intact (NEGATIVE); UROBILINOGEN,URINE 0.2 (0.2)
[2020-08-09 01:32] LABS: HYALINE CASTS, URINE 0-2 (NOT PRESENT); SQUAMOUS EPITHELIAL CELL,UR 0-2 (0-5)
[2020-08-09 04:56] LABS: BASOPHILS % (AUTO) 0.4 % (0.0-3.0); EOSINOPHILS # (AUTO) 0.2 K/ul (0.0-0.7); HEMATOCRIT 32.2 % (42.0-52.0); HEMOGLOBIN 10.2 g/dl (14.0-18.0); IMMATURE GRANULOCYTE % (AUTO) 0.3 % (0.0-5.0); LYMPHOCYTES # (AUTO) 1.9 K/uL (0.60-3.4); LYMPHOCYTES % (AUTO) 26.6 (10.0-50.0); MEAN CORPUSCULAR HEMOGLOBIN 30.3 pg (27.0-31.0); MEAN CORPUSCULAR HGB CONC 31.7 (31.8-35.4); MEAN CORPUSCULAR VOLUME 95.5 fl (80.0-94.0); MONOCYTES # (AUTO) 0.8 K/uL (0.4-2.0); MONOCYTES % (AUTO) 10.7 (0-10); NEUTROPHILS # (AUTO) 4.1 K/ul (2.0-6.9); PLATELET COUNT 179 10^3/uL (140-440); RDW COEFFICIENT OF VARIATION 13.3 % (11.6-14.8); RED BLOOD COUNT 3.37 10^6/ul (4.70-6.10); WHITE BLOOD COUNT 7.02 K/ul (4.2-10.2)
[2020-08-09 05:08] LABS: ALANINE AMINOTRANSFERASE 68.7 U/L (0-50); ALBUMIN 3.37 g/dL (3.5-5.0); ALKALINE PHOSPHATASE 129.9 U/L (56-119); ASPARTATE AMINO TRANSFERASE 56.8 U/L (17-59); BILIRUBIN,TOTAL 0.43 mg/dL (0.2-1.3); BLOOD UREA NITROGEN 34.7 mg/dL (9-20); CALCIUM 8.25 mg/dL (8.4-10.2); CARBON DIOXIDE 27.1 mmol/L (22-30.0); CHLORIDE 106.1 mmol/L (98-107); CREATININE 1.3 mg/dL (0.60-1.10); GLUCOSE 90.1 mg/dL (74-106); POTASSIUM 4.23 mmol/L (3.5-5.1); SODIUM 138.6 mmol/L (134.5-145); TOTAL PROTEIN 6.14 g/dL (6.3-8.2)
[2020-08-09] MEDS: SYNTHROID PO SCH (05:53)
[2020-08-09] MEDS: PROTONIX PO SCH (08:13)
[2020-08-09] MEDS: SECTRAL PO SCH ×2 (08:14→20:33)
[2020-08-09] MEDS: NEURONTIN PO SCH (08:14)
[2020-08-09] MEDS: ELIQUIS PO SCH ×2 (08:15→20:33)
[2020-08-09] MEDS ORDERED: ZESTORETIC 20-12.5 MG TAB PO SCH ×2 (09:00)
[2020-08-09] MEDS: LASIX IVP SCH (12:30)
[2020-08-10 05:15] LABS: BASOPHILS % (AUTO) 0.3 % (0.0-3.0); EOSINOPHILS # (AUTO) 0.2 K/ul (0.0-0.7); EOSINOPHILS % (AUTO) 2.4 % (0.0-7.0); HEMATOCRIT 32.4 % (42.0-52.0); HEMOGLOBIN 10.4 g/dl (14.0-18.0); IMMATURE GRANULOCYTE % (AUTO) 0.1 % (0.0-5.0); LYMPHOCYTES # (AUTO) 2.2 K/uL (0.60-3.4); LYMPHOCYTES % (AUTO) 31.8 (10.0-50.0); MEAN CORPUSCULAR HEMOGLOBIN 29.6 pg (27.0-31.0); MEAN CORPUSCULAR HGB CONC 32.1 (31.8-35.4); MEAN CORPUSCULAR VOLUME 92.3 fl (80.0-94.0); MONOCYTES # (AUTO) 0.7 K/uL (0.4-2.0); MONOCYTES % (AUTO) 10.5 (0-10); NEUTROPHILS # (AUTO) 3.8 K/ul (2.0-6.9); NEUTROPHILS % (AUTO) 54.9 % (42.2-75.2); PLATELET COUNT 192 10^3/uL (140-440); RDW COEFFICIENT OF VARIATION 13.2 % (11.6-14.8); RED BLOOD COUNT 3.51 10^6/ul (4.70-6.10); WHITE BLOOD COUNT 6.95 K/ul (4.2-10.2)
[2020-08-10 05:29] LABS: ALANINE AMINOTRANSFERASE 81.3 U/L (0-50); ALBUMIN 3.29 g/dL (3.5-5.0); ALKALINE PHOSPHATASE 138.9 U/L (56-119); ASPARTATE AMINO TRANSFERASE 69.5 U/L (17-59); BILIRUBIN,TOTAL 0.47 mg/dL (0.2-1.3); BLOOD UREA NITROGEN 37.1 mg/dL (9-20); CALCIUM 8.16 mg/dL (8.4-10.2); CARBON DIOXIDE 28.4 mmol/L (22-30.0); CHLORIDE 104.9 mmol/L (98-107); CREATININE 1.4 mg/dL (0.60-1.10); GLUCOSE 100.6 mg/dL (74-106); POTASSIUM 4.22 mmol/L (3.5-5.1); SODIUM 138.8 mmol/L (134.5-145); TOTAL PROTEIN 6.15 g/dL (6.3-8.2)
[2020-08-10] MEDS: LASIX IVP SCH (05:44)
[2020-08-10] MEDS: SYNTHROID PO SCH (05:44)
[2020-08-10] MEDS: PROTONIX PO SCH (05:44)
[2020-08-10 06:07] VITALS: BP 128/64; TEMP 98.1
--- NOTE | 2020-08-10 08:42 | HP ---
DATE OF SERVICE: 08/08/20 REASON FOR HOSPITALIZATION/HISTORY OF PRESENT ILLNESS: 85-year-old male with leg swelling below knee. Now right leg is swollen to the thigh, tender giraldo/calf. Denies any shortness of breath. No signs or symptoms of CHF/CAD/Covid. PAST MEDICAL HISTORY: Shortness of breath COPD CAD LV dysfunction Hypothyroidism Varicose veins Anemia B12 deficiency Diverticulosis PVCs PAST SURGICAL HISTORY: CABG 2003 Hernia repair REVIEW OF SYSTEMS: CONSTITUTIONAL: No fever, no fatigue. HEENT: No sinus drainage, no sore throat. RESPIRATORY: No cough, no congestion. CARDIOVASCULAR: No atypical chest pain for coronary artery disease. No angina, CHF symptoms, palpitations or shortness of breath. GASTROINTESTINAL: No melena or abdominal pain. No GERD. GENITOURINARY: No hematuria, no prostatism, no polyuria. MACHINERY DISMANTLER: No blackout, no dizziness, no headache, no double vision. MUSCULOSKELETAL: Osteoarthritis pain. ENDOCRINE: No weight loss, no weight gain. SKIN: Not dry, no rash. PSYCHIATRIC: Not anxious, no depression, no suicidal thoughts, no homicidal thoughts. SOCIAL HISTORY: Chews tobacco. Never smoker. . No alcohol use. FAMILY HISTORY: Father - prostate cancer (onset age 86); mother colorectal cancer (onset age 65), [place], DM. MEDICATIONS: Zestoretic 20-12.5 mg/0.5 tab p.o. daily Synthroid 75 mcg p.o. daily Protonix 40 mg daily Neurontin 300 mg daily Sectral 20 mg b.i.d. Martin 7.5/325 mg t.i.d. ASA 325 mg daily Vitamin E and C Fish Oil daily OTC Move Free one daily 02 at h.s. ALLERGIES: PCN, VYTORIN, LIPITOR, ZETIA PHYSICAL EXAMINATION: V/S: Pulse 77, BP 110/68, temperature 97.9, 02 sat 98%. Height 5'8", weight 158.0, BMI 24.0. GENERAL APPEARANCE: Oriented times three. HEENT: Normal. NECK: No JVP, no bruits. RESPIRATORY: Decreased breath sounds. Lungs are clear. CARDIOVASCULAR: S1, S2, no S3, no murmur. No cyanosis, clubbing. No ascites. GI/ABDOMEN: No tenderness. Bowel sounds are active. EXTREMITIES: +3 right lower extremity; trace left lower extremity edema. right lower extremity swelling to thigh. Pulses +1, equal. MACHINERY DISMANTLER: Deep tendon reflexes, sensory, motor and gait all normal. ASSESSMENT: 1. Left lower extremity DVT. 2. Leg edema, right greater than left. 3. Chronic kidney disease, Stage 3. 4. Shortness of breath. 5. COPD. 6. CAD. 7. CABG, 2002. 8. LV dysfunction. 9. Hypothyroidism. 10. Varicose veins. 11. Anemia. 12. PVCs. 13. History of B12 deficiency. 14. Diverticulosis. PLAN: 1. Admit - Acute. 2. Routine telemetry orders. No cardiac markers. 3. CBC, CMP now and daily. 4. Chest x-ray. 5. Start Eliquis 10 mg b.i.d. times 7 days p.o. 6. UA. 7. Lasix 40 mg times one dose. 8. Regular diet. 9. 2D echo. 10. Continue all home medications. 11. Elevate legs. 12. Daily weight. 13. Covid test by respiratory panel PCR. TIME SPENT: More than 70 minutes. MTDD
[2020-08-10] MEDS ORDERED: ZESTRIL PO SCH (09:00)
[2020-08-10] MEDS: NEURONTIN PO SCH (09:02)
[2020-08-10] MEDS: ELIQUIS PO SCH (09:02)
[2020-08-10] MEDS: SECTRAL PO SCH (09:02)
--- NOTE | 2020-08-10 09:15 | PCM.PROG ---
Attending Provider: ATTENDING PROVIDER: Dr. HUSSEIN LOOMIS This patient is seen with Arely Purcell, Nurse Practitioner. DATE OF SERVICE: 08/10/20 SUBJECTIVE: This 85 year old /WHITE M was hospitalized 08/08/20. The patient is resting comfortably. Leg edema has significantly improved. Hgb is stable. Tolerating Eliquis. REVIEW OF SYSTEMS: CONSTITUTIONAL: No night sweats. No fatigue, malaise, lethargy. No fever or chills. Weakness. HEENT: Eyes: No visual changes. No eye pain. No eye discharge. ENT: No runny nose. No epistaxis. No sinus pain. No odynophagia. No congestion. RESPIRATORY: No cough, no congestion. No hemoptysis. No shortness of breath. CARDIOVASCULAR: No angina symptoms. No CHF symptoms. No atypical chest pain for CAD. No palpitations. No orthopnea.. GASTROINTESTINAL: No abdominal pain. No nausea or vomiting. No diarrhea or constipation. No hematemesis. No hematochezia. GENITOURINARY: No urgency. No frequency. No dysuria. No hematuria. No obstruct sintia symptoms. No discharge. No pain. No significant abnormal bleeding. MUSCULOSKELETAL: No musculoskeletal pain; no joint swelling. Chronic pain. NEUROLOGICAL: Awake, alert, oriented to time, place and person. No headache. No neck pain. No syncope. No seizures. No dizziness. PSYCHIATRIC: Not anxious. No depression. No suicidal thoughts. No homicidal thoughts. SKIN: No rash. No lesions. No wounds. Right lower extremity edema. ENDOCRINE: No unexplained weight loss. No weight gain. HEMATOLOGIC/LYMPHATIC: No anemia. No purpura. No petechiae. No prolonged or excessive bleeding. No palpable lymph nodes. PHYSICAL EXAMINATION: GENERAL: The patient is awake, alert and oriented, lying in bed in no distress. VITAL SIGNS: Temperature 98.1 F, Pulse 71, Respiratory Rate 18, BP 128/64, Pulse Ox 95% HEENT: Head normocephalic, atraumatic. Eyes: Extraocular muscles are intact. Pupils are equal, round and reactive to light and accommodation. Ears: No lesions. Nose appeared normal. Throat: No exudate or erythema. NECK: Supple. No JVD, no carotid bruit. No lymphadenopathy or thyromegaly. LUNGS: Diminished breath sounds. Clear to auscultation. Percussion note normal. Chest symmetrical. HEART: S1, S2, no S3. No murmurs. No cyanosis or clubbing. No ascites. Pulses: Dorsalis pedis and posterior tibial pulses +1 to +2 both sides. ABDOMEN: Soft. Non-tender. Bowel sounds active. No CVA tenderness. No mass felt. EXTREMITIES: Trace lower extremity edema. Full range of motion of all extremities, equal. NEUROLOGIC: No focal deficit. Cranial nerves II through XII are grossly intact. No headache. No double vision. SKIN: Not dry. Intact. Turgor-normal. LYMPHATIC: No palpable lymph nodes/no lymphedema. MUSCULOSKELETAL: Normal joints with no swelling. Muscle tone is normal. LAB REVIEW: 08/10/20 04:55 08/10/20 04:55 08/10/20 04:55: Sodium 138.8, Potassium 4.22, Chloride 104.9, Carbon Dioxide 28.4, Anion Gap 9.72, BUN 37.1 H, Creatinine 1.40 H, Estimated GFR (MDRD) 48.00, BUN/Creatinine Ratio 26.50, Glucose 100.6, Calcium 8.16 L, Total Bilirubin 0.47, AST 69.5 H, ALT 81.3 H, Alkaline Phosphatase 138.9 H, Total Protein 6.15 L, Albumin 3.29 L, Globulin 2.86, Albumin/Globulin Ratio 1.15 08/10/20 04:55: WBC 6.95, RBC 3.51 L, Hgb 10.4 L, Hct 32.4 L, MCV 92.3, MCH 29.6, MCHC 32.1, RDW Coeff of Roberto 13.2, Plt Count 192, Immature Gran % (Auto) 0.1, Neut % (Auto) 54.9, Lymph % (Auto) 31.8, Rooks % (Auto) 10.5 H, Eos % (Auto) 2.4, Baso % (Auto) 0.3, Neut # (Auto) 3.8, Lymph # (Auto) 2.2, Rooks # (Auto) 0.7, Eos # (Auto) 0.2, Baso # (Auto) 0.0, Immature Gran # (Auto) 0.0 ASSESSMENT: Please see below. 1. DVT, left lower extremity 2. Right lower extremity edema 3. Chronic kidney disease stage 3 4. Chronic anemia. PLAN: 1. The patient is adamant about going home today. 2. Repeat venous 3. Hgb is stable on Eliquis 4. Discussed risk of bleeding such as GI. Fall precautions. No NSAIDS 5. He will need to be on Eliquis 10mg BID for 7 days and then transition to 5mg BID Plan and coordination of the patient's care discussed in the presence of Corbin escobar and nurse. SCRIBED BY: Josemanuel FOREMAN scribed while in presence of service performed by Dr. Loomis/Arely Purcell APRN on 08/10/20 ([id number])
--- NOTE | 2020-08-10 11:08 | CM.DICTOOL ---
ADMISSION: 08/08/20 19:46 DISCHARGE: AUGUST 10, 2020 DATE OF SERVICE: 08/10/20 FINAL DIAGNOSIS LLE DVT RT LOWER EXTREMITY EDEMA CKD STAGE 3 CHRONIC ANEMIA A-FIB HX: SOB COPD - OXYGEN DEPENDENT AT NIGHT HYPERTENSION CARDIAC ARRHYTHMIAS PVCs CAD CHRONIC ANEMIA LV DYSFUNCTION POSSIBLE TIA HYPOTHYROIDISM VERICOSE VIENS GENERALIZED ARTHRITIS B 12 DEFICIENCY DIVERTICULOSIS FALLS WITH MUTIPLE RIB FRACTURES EF 44 % LVH HYPOKINETIC SEPTUM MODERATE MITRAL REGURGITATION INCREASED LAC - 4.9 SURGICAL PROCEDURES: CAGB 2002 LAST VITALS Temp Pulse Resp BP Pulse Ox 98.1 F 71 18 128/64 97 08/10/20 06:00 08/10/20 06:00 08/10/20 06:00 08/10/20 06:00 08/10/20 09:30 TAKE THESE MEDICATIONS AT HOME Acebutolol HCl (Acebutolol Hcl 200 Mg Capsule) 200 mg PO BID [facility] Last Admin: 08/10/20 09:02 Dose: 200 mg Documented by: Hydrocodone Bitart/Acetaminophen (Hydrocodone Bit/Acetaminophen 5/325 Mg Tablet) 1 tab PO TID PRN PRN Reason: Pain Apixaban (Apixaban 5 Mg Tab) 10 mg PO BID [facility] THROUGH 08/15/2020 , START 08/16/2020 5 MG PO BID -- ( NEW ) Stop: 08/15/20 21:59 Last Admin: 08/10/20 09:02 Dose: 10 mg Documented by: Gabapentin (Gabapentin 300 Mg Capsule) 300 mg PO DAILY [facility] Last Admin: 08/10/20 09:02 Dose: 300 mg Documented by: Levothyroxine Sodium (Levothyroxine Sodium 50 Mcg Tablet) 50 mcg PO QDAC [facility] Last Admin: 08/10/20 05:44 Dose: 50 mcg Documented by: Pantoprazole Sodium (Pantoprazole Sodium 40 Mg Tablet.) 40 mg PO QDAC [facility] Last Admin: 08/10/20 05:44 Dose: 40 mg Documented by: Lisinopril/HCTZ (Lisinopril/Hydrochlorothiazide 20/12.5 Tablet) 0.5 tab PO DAILY [facility] Last Admin: 08/09/20 08:22 Dose: 0.5 tab Documented by: OMEGA- 3 FATTY ACIDS 1 CAP PO DAILY ( HOME MED) [id number] BORATE 1 TAB PO DAILY ( HOME MED) ALLERGIES Penicillins Adverse Reaction (Verified 08/14/19 16:34) DISCONTINUED MEDICATIONS NONE NEW PRESCRIPTIONS: ELIQUIS (Apixaban 5 Mg Tab) 10 mg PO BID [facility]WAIS X 7 DAYS ( 08/09/2020 THROUGH 08/15/2020) , START 08/16/2020 5 MG PO BID -- ( NEW ) SMOKING: N/A DISEASE SPECIFIC EDUCATION: ELIQUIS BLEEDING PRECAUTIONS FALL PRECAUTIONS ELEVATING LOWER EXTREMETIES LAB REVIEW: 08/10/20 04:55 08/10/20 04:55 08/10/20 04:55: Sodium 138.8, Potassium 4.22, Chloride 104.9, Carbon Dioxide 28.4, Anion Gap 9.72, BUN 37.1 H, Creatinine 1.40 H, Estimated GFR (MDRD) 48.00, BUN/Creatinine Ratio 26.50, Glucose 100.6, Calcium 8.16 L, Total Bilirubin 0.47, AST 69.5 H, ALT 81.3 H, Alkaline Phosphatase 138.9 H, Total Protein 6.15 L, Albumin 3.29 L, Globulin 2.86, Albumin/Globulin Ratio 1.15 08/10/20 04:55: WBC 6.95, RBC 3.51 L, Hgb 10.4 L, Hct 32.4 L, MCV 92.3, MCH 29.6, MCHC 32.1, RDW Coeff of Roberto 13.2, Plt Count 192, Immature Gran % (Auto) 0.1, Neut % (Auto) 54.9, Lymph % (Auto) 31.8, [place] % (Auto) 10.5 H, Eos % (Auto) 2.4, Baso % (Auto) 0.3, Neut # (Auto) 3.8, Lymph # (Auto) 2.2, [place] # (Auto) 0.7, Eos # (Auto) 0.2, Baso # (Auto) 0.0, Immature Gran # (Auto) 0.0 PLAN: DISCHARGE: TODAY AUGUST 10, 2020 HOME WITH ACTIVITY: KEEP LEGS ELEVATED MUCH POSSIBLE NO STRENOUS ACTIVITY BLEEDING PRECAUTIONS PANDEMIC PRECAUTIONS DIET: REGULAR WITH ADEQUATE FLUIDS. DO NOT GET DEHYDRATED FOLLOW-UP: SEE DR. MEDINA/EMMANUEL LENNON APRN/ CORTES HEAD APRN IN THE OFFICE ON MONDAY, AUGUST 17, 2020 @ 1115 CODE STATUS: FULL CODE MR. GAR REMAINS ALERT AND ORIENTED X 4. HE GETS UP WITH ASSIST OF A CANE AND USES A CRUTCH ALSO, ASSISTANT STORE LEADER. SWELLING TO LEGS IS MINIMAL NOW. HE DOES NOT REPORT ANY PAIN. NO REPORTS OF CHEST PAIN OR SOB. HE DOES HAVE SLIGHT ASSISTANT STORE LEADER ECCHYMOSIS TO ARMS. SKIN IS OTHERWISE INTACT. IS CONTINENT OF BOWEL AND BLADDER AND LAST BM 08/08/2020. FEEDS SELF AND NUTRITIONAL AND FLUID INTAKE IS GOOD. 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 HE USES OXYGEN AT 2 L/M PER N/C AT NIGHT. MD EMMANUEL CERRATO APRN ALYCE HANNAN, APRN
--- NOTE | 2020-08-10 11:37 | US ---
EXAM: Bilateral lower extremity venous doppler. HISTORY: Bilateral leg swelling. Deep vein thrombosis follow-up. COMPARISON: 08/08/2020. TECHNIQUE: A duplex Doppler study was performed consisting of integrated two dimensional (2D) real-t gina imaging color flow Doppler and Doppler spectral analysis utilizing linear array probes. FINDINGS: There is normal flow, venous waveforms, compressibility and augmentation of flow within th e right and left common femoral, greater saphenous, profunda, femoral, popliteal, posterior tibial, a nterior tibial and peroneal veins, save for persistent focal echogenic shadowing structure along the posterior wall of the distal left superficial femoral vein. There is color flow at this level and ve nous waveforms although there is only partial compressibility. Subcutaneous edema present in the anabell ves. IMPRESSION: 1. 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 2. Otherwise no evidence for right or left lower extremity deep vein thrombosis at the levels examin ed.
--- NOTE | 2020-08-11 13:01 | ECHO2D ---
Date of Exam: 08/09/2020 Ordering Physician: DR. HUSSEIN MEDINA Room #: 103 Reason for Echo: EDEMA, DVT, SOB, ATRIAL FIBRILLATION M-Mode Normal Adult Results LV Dimensions Normal Adult Results AoV Opening excursions >1.6 >1.6 LVEDD-base- 3.5-5.8 5.6 Ao root dimensions 2.0-3.7 3.1 LVESD-base- 3.1-4.6 L. Atrium dimensions 1.9-3.8 5.2 Post. Wall thickness 0.8-1.1 1.2 IV septum (thickness) 0.7-1.2 1.3 Post. Wall excursion 0.72-1.3 NORMAL Septal motion 0.5 Systolic motion R. Ventricular cavity 1.5-2.0 3.5 LVEF 60% 57% Paradoxical septal wall motion NORMAL 2-D : ENLARGED LEFT ATRIAL, RIGHT VENTRICLE AND LEFT VENTRICLE CAVITIES--HYPOKINETIC SEPTUM, NO EFFUSION, NO THROMBUS, VALVES--NORMAL COLOR FLOW: MODERATE MITRAL REGURGITATION M-MODE: MV: MAYBE MITRAL VALVE PROLAPSE AV: NORMAL TV: NORMAL PV: CHAMBER SIZE: ENLARGED LEFT ATRIAL, RIGHT VENTRICLE AND LEFT VENTRICLE CAVITIES WALL MOTION: HYPOKINETIC SEPTUM PERICARDIUM: NORMAL INTERPRETATION: 1. 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 ENLARGED RIGHT VENTRICLE AND LEFT VENTRICLE CAVITIES 3. HYPOKINETIC SEPTUM EJECTION FRACTION 57% 4. MODERATE MITRAL REGURGITATION MTDD
--- NOTE | 2020-08-14 09:37 | PN ---
08/08/2020: Level 5 08/09/2020: Intermediate 08/10/2020: D as in discharge MTDD
--- NOTE | 2020-08-14 09:37 | PN ---
DATE OF SERVICE: 08/10/2020 SUBJECTIVE: The patient was seen and examined with the Nurse Practitioner. The patient's condition is stable. His leg edema is practically resolved. The patient has new finding of atrial fibrillation and also has a DVT. He is going to be on Xarelto but he is going to be on Eliquis BID after that initial dose. He will be on 5mg twice a day. He is 85. We will consider a smaller dose depending upon how he feels. At present time he has agreed to take blood thinners. The patient is still to some extent he able to work with the walker. He has his own business. Echo showed dilated left ventricle. Ejection fraction is acceptable. LA cavity is markedly enlarged. Moderate mitral regurgitation noted. The patient at the time of discharge has no symptoms of coronary insufficiency or CHF. CONDITION: Stable. PROGNOSIS: Guarded TIME SPENT: More than 30 minutes. Plan and coordination of the patient's care discussed in the presence of nurse. MAKENNA
--- NOTE | 2020-08-14 12:47 | PN ---
DATE OF SERVICE: 08/09/2020 SUBJECTIVE: 85 year old white male hospitalized with left leg DVT and bilateral leg edema. The patient's condition seems to have improved and leg edema is much less. Non- tender left side and also the right side is nontender. Denies of any chest pain. REVIEW OF SYSTEMS: CONSTITUTIONAL: No night sweats. No fatigue, malaise, lethargy. No fever or chills. HEENT: Eyes: No visual changes. No eye pain. No eye discharge. ENT: No runny nose. No epistaxis. No sinus pain. No sore throat. No odynophagia. No congestion. RESPIRATORY: No cough, no congestion. No hemoptysis. No shortness of breath. CARDIOVASCULAR: No angina symptoms. No CHF symptoms. No atypical chest pain for CAD. No palpitations. No PND. No orthopnea. GASTROINTESTINAL: No abdominal pain. No nausea or vomiting. No diarrhea or constipation. No hematemesis. No hematochezia. GENITOURINARY: No urgency. No frequency. No dysuria. No hematuria. No obstructive symptoms. No discharge. No pain. No significant abnormal bleeding. MUSCULOSKELETAL: No musculoskeletal pain; no joint swelling. NEUROLOGICAL: No headache. No neck pain. No syncope. No seizures. No dizziness. PSYCHIATRIC: Not anxious. No depression. No suicidal thoughts. No homicidal thoughts. SKIN: No rash. No lesions. No wounds. ENDOCRINE: No unexplained weight loss. No weight gain. HEMATOLOGIC/LYMPHATIC: No anemia. No purpura. No petechiae. No prolonged or excessive bleeding. No palpable lymph nodes. PHYSICAL EXAMINATION: VITAL SIGNS: Temperature 97.8, pulse 63, respiratory rate 18, blood pressure 124/60 and pulse ox 100%. HEENT: Head normocephalic, atraumatic. Eyes: Extraocular muscles are intact. Pupils are equal, round and reactive to light and accommodation. Ears: No lesions. Nose appeared normal. Throat: No exudate or erythema. NECK: Supple. No JVD, no carotid bruit. No lymphadenopathy or thyromegaly. LUNGS: Decreased breath sounds but clear to auscultation. Percussion note normal. Chest symmetrical. HEART: S1, S2, no S3. No murmurs. No cyanosis or clubbing. No ascites. Pulses: Dorsalis pedis and posterior tibial pulses +1 to +2 bilaterally. ABDOMEN: Soft. Nontender. Bowel sounds active. No CVA tenderness. No mass felt. EXTREMITIES: Both legs have +1 pitting edema. Full range of motion of all extremities, equal. Both calf muscles are nontender. No redness noted. NEUROLOGIC: No focal deficit. Cranial nerves II through XII are grossly intact. No headache. No double vision. SKIN: Not dry. Intact. Turgor - normal. LYMPHATIC: No palpable lymph nodes/no lymphedema. MUSCULOSKELETAL: Normal joints with no swelling. Muscle tone is normal. LABS: Hgb 10.2, hct 32, WBC 7,000 normal differential, creatinine 1.3, BUN 34, potassium 4.2. Estimated GFR 52cc per minute. ASSESSMENT: 1. Left leg DVT. 2. Bilateral leg edema 3. Atrial fibrillation 4. Chronic anemia 5. Chronic kidney disease PLAN: 1. Echo done which showed hypokinetic septum with normal ejection fraction with hyperdynamic left ventricular posterior wall motion. Borderline enlarged left ventricular cavity, right ventricular cavity also is enlarged. Left atrial cavity markedly enlarged. 2. Continue Eliquis 10mg BID 3. Lasix 20mg IV 4. Lisinopril 10mg PO daily 5. Levothyroxine to be continued CONDITION: stable Explained about Apixaban and need for it at least 6 months not to take any nonsteroidal antiinflammatory. The patient is oriented to time, place and person. The patient has private business. Atrial fibrillation the patient has been explained that he may have to stay on Apixaban for life time. His WILVER III Vasc score is more than 5. 3. TIME SPENT: More than 30 minutes. Plan and coordination of the patient's care discussed in the presence of nurse. MAKENNA
--- NOTE | 2020-09-20 07:42 | DS ---
DATE OF SERVICE: 08/10/20 FINAL DIAGNOSIS: 1. LEFT LOWER EXTREMITY DVT 2. RT LOWER EXTREMITY EDEMA 3. CHRONIC KIDNEY DISEASE STAGE 3 4. CHRONIC ANEMIA 5. ATRIAL FIBRILLATION HX: 6. SHORTNESS OF BREATH 7. COPD - OXYGEN DEPENDENT AT NIGHT 8. HYPERTENSION 9. CARDIAC ARRHYTHMIAS 10. PVCs 11. CORONARY ARTERY DISEASE 12. CHRONIC ANEMIA 13. LV DYSFUNCTION 14. POSSIBLE TIA 15. HYPOTHYROIDISM 16. VARICOSE VEINS 17. GENERALIZED ARTHRITIS 18. B12 DEFICIENCY 19. DIVERTICULOSIS 20. FALLS WITH MULTIPLE RIB FRACTURES 21. EF 44% 22. LVH 23. HYPOKINETIC SEPTUM 24. MODERATE MITRAL REGURGITATION 25. INCREASED LAC - 4.9 SURGICAL PROCEDURES: 26. CAGB 2002 LAST VITALS Temp Pulse Resp BP Pulse Ox 98.1 F 71 18 128/64 97 08/10/20 06:00 08/10/20 06:00 08/10/20 06:00 08/10/20 06:00 08/10/20 09:30 DISCHARGE INSTRUCTIONS: 1. DISCHARGE: TODAY AUGUST 10, 2020 HOME WITH . 2. MD FOLLOW-UP: SEE DR. MEDINA/EMMANUEL LENNON APRN/[employer] APRN IN THE OFFICE ON MONDAY, AUGUST 17, 2020 @ 8199. MEDICATIONS AT DISCHARGE: Acebutolol HCl (Acebutolol Hcl 200 Mg Capsule) 200 mg PO BID [facility] Last Admin: 08/10/20 09:02 Dose: 200 mg Documented by: Hydrocodone Bitart/Acetaminophen (Hydrocodone Bit/Acetaminophen 5/325 Mg Tablet) 1 tab PO TID PRN PRN Reason: Pain Apixaban (Apixaban 5 Mg Tab) 10 mg PO BID [facility] THROUGH 08/15/2020 , START 08/16/2020 5 MG PO BID -- ( NEW ) Stop: 08/15/20 21:59 Last Admin: 08/10/20 09:02 Dose: 10 mg Documented by: Gabapentin (Gabapentin 300 Mg Capsule) 300 mg PO DAILY [facility] Last Admin: 08/10/20 09:02 Dose: 300 mg Documented by: Levothyroxine Sodium (Levothyroxine Sodium 50 Mcg Tablet) 50 mcg PO QDAC [facility] Last Admin: 08/10/20 05:44 Dose: 50 mcg Documented by: Pantoprazole Sodium (Pantoprazole Sodium 40 Mg Tablet.) 40 mg PO QDAC [facility] Last Admin: 08/10/20 05:44 Dose: 40 mg Documented by: Lisinopril/HCTZ (Lisinopril/Hydrochlorothiazide 20/12.5 Tablet) 0.5 tab PO DAILY [facility] Last Admin: 08/09/20 08:22 Dose: 0.5 tab Documented by: OMEGA- 3 FATTY ACIDS 1 CAP PO DAILY (HOME MED) [id number] BORATE 1 TAB PO DAILY (HOME MED) NEW PRESCRIPTIONS: ELIQUIS (Apixaban 5 Mg Tab) 10 mg PO BID [facility]WAIS X 7 DAYS (08/09/2020 THROUGH 08/15/2020) START 08/16/2020 5 MG PO BID -- (NEW) DISCONTINUED MEDICATIONS: NONE DIET INSTRUCTIONS: REGULAR WITH ADEQUATE FLUIDS. DO NOT GET DEHYDRATED ACTIVITY: KEEP LEGS ELEVATED MUCH POSSIBLE NO STRENOUS ACTIVITY BLEEDING PRECAUTIONS PANDEMIC PRECAUTIONS SMOKING: N/A DISEASE SPECIFIC EDUCATION: ELIQUIS BLEEDING PRECAUTIONS FALL PRECAUTIONS ELEVATING LOWER EXTREMETIES HOSPITAL COURSE: The patient was a direct admit from our office. He presented to the office with bilateral leg edema with right greater than left. Bilateral venous scan was done which showed a clot in the left lower extremity. It was unsure whether this was chronic or acute. He was admitted, placed on Eliquis 10 mg p.o. b.i.d. for DVT treatment. Over the course of the next several days he tolerated the Eliquis. He was also given IV Lasix 40 mg times two days. Leg edema improved. The pain in his legs improved. 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 He understands the risks with DVT. Again, his hemoglobin has been stable. He has tolerated Eliquis. We have discussed no NSAIDS and the risk of bleeding with Eliquis. He will go home to complete his course of Eliquis 10 b.i.d. for the next few days to complete a 7 day course and then go on 5 mg b.i.d. and we will followup with him in the office next week. TIME SPENT: More than 60 minutes. MTDD
== END 2020-08-10 12:01 | disposition home or self-care (01) | DRG 948 ==
LOC: MEDSURG A 19:46
PROVIDERS: ADMIT Internal Medicine; ATTEND Internal Medicine